=== PATIENT | female | born 1945 | race Caucasian/White ===

== ENCOUNTER → 2023-02-27 07:33 | Outpatient (CLI) | payer MEDICARE, BC, SELFPAY ==
--- NOTE | 2023-02-27 | DI.ECHO.S_ITS ---
[facility] +---------+ : : [address] : : : : [id number] : : : : Phone: [phone]---------+ Echocardiogram Report + + :Name: ANTONIA CAMACHO Study Date: 02/27/2023 Height: 63 in : :[facility] ReadingLocation: Weight: 206 lb : : Gender: Female BSA: 2.0 m2 : :: 1945 Age: 77 yrs BP: 170/85 mmHg: :Reason For Study: Acute Pericarditis : :Ordering Physician: JAGUAR, : :BORA Performed By: Arleen Torres : :Referring: BORA MONTESINOS : + + Interpretation Summary The ejection fraction is estimated to be 60-65%. There is mild tricuspid regurgitation. The right ventricular systolic pressure is estimated to be at least 24 mmHg based on an estimated right atrial pressure of 3 mm Hg. There is no pericardial effusion. Procedure: A two-dimensional transthoracic echocardiogram with color flow and Doppler was performed. The study quality was technically adequate. There is no prior echocardiogram noted for this patient. The patient was in normal sinus rhythm during the exam. Left Ventricle: The left ventricle is normal in size. The ejection fraction is estimated to be 60-65%. Left ventricular wall motion is normal. Diastolic parameters suggest a relaxation abnormality of the left ventricle, consistent with probable normal filling pressures. Right Ventricle: The right ventricle is normal in size and function. Atria: The left atrial size is normal. Right atrial size is normal. There is no Doppler evidence for an interatrial shunt. Mitral Valve: The mitral valve leaflets are moderately calcified. There is no mitral valve stenosis. There is trace mitral regurgitation. Aortic Valve: The aortic valve is trileaflet. The aortic valve is slightly calcified. There is no aortic valve stenosis. No aortic regurgitation is present. Tricuspid Valve: The tricuspid valve is normal. There is no tricuspid stenosis. There is mild tricuspid regurgitation. The right ventricular systolic pressure is estimated to be at least 24 mmHg based on an estimated right atrial pressure of 3 mm Hg. Pulmonic Valve: The pulmonic valve is not well visualized. There is no pulmonic valvular stenosis. There is trace pulmonic regurgitation. Great Vessels: The aortic root is normal size. The ascending aorta is normal in size. The pulmonary artery is normal size. The IVC is of normal diameter and collapses greater than 50% with a sniff. This suggests a low right atrial pressure of 3 mm Hg. Pericardium/ Pleura There is no pericardial effusion. There is no pleural effusion. MMode/2D Measurements & Calculations LVIDd: 2.7 cm LVOT diam: 1.8 cm LVIDs: 1.4 cm Ao root diam: 2.6 cm FS: 48.1 % asc Aorta Diam: 2.9 cm IVSd: 1.1 cm LVPWd: 1.1 cm LV rodriguez. diameter/BSA (cm/m^2): 1.4 LV sys. diameter/BSA (cm/m^2): 0.71 LA A2 area: 11.8 cm2 RA long axis: 5.5 cm LA A4 area: 19.5 cm2 RA area: 13.6 cm2 LA length (vol): 4.8 cm RA vol: 28.6 ml LA vol: 40.9 ml RA : 14.6 ml/m2 LA vol index: 20.9 ml/m2 RVD1 (basal): 4.0 cm LVLs ap4: 5.5 cm LVLd ap2: 6.6 cm TAPSE_phl: 2.4 cm LVLs ap2: 5.7 cm Doppler Measurements & Calculations Ao V2 max: 192.0 cm/sec LVOT Max Myron: 114.3 cm/sec Ao V2 mean: 134.3 cm/sec LV V1 max P.2 mmHg Ao max P.0 mmHg LV V1 VTI: 27.5 cm Ao mean P.3 mmHg ALEJANDRA(I,D): 1.5 cm2 Ao V2 VTI: 45.3 cm ALEJANDRA(V,D): 1.5 cm2 sev ratio: 0.61 ALEJANDRA indexed to BSA (cm^2/m^2): 0.78 MV E max myron: 118.0 cm/sec TR max myron: 226.5 cm/sec MV A max myron: 121.0 cm/sec TR max P.1 mmHg MV E/A: 0.98 PA V2 max: 123.0 cm/sec Med Peak E' Myron: 7.1 cm/sec PA V2 mean: 85.5 cm/sec E/E' med: 16.6 PA mean P.0 mmHg Lat Peak E' Myron: 6.6 cm/sec PA pr(Accel): 24.6 mmHg E/E' lat: 17.9 E/e' average: 17.2 MV dec time: 0.29 sec SV(LVOT): 69.3 ml AV VR_phl: 0.59 ALEJANDRA(VTI)/BSA_phl: 0.70 Reading Physician:04:[id number] PM
== END ==
PROVIDERS: PCP Family Medicine; Referring Provider Nurse Practitioner Family; Visit Provider Nurse Practitioner Family
DX: I30.9 Acute pericarditis, unspecified (principal); I07.1 Rheumatic tricuspid insufficiency; R01.2 Other cardiac sounds
CPT/HCPCS: 93306